=== PATIENT | male | born 1960 | race Caucasian/White ===

== ENCOUNTER 2020-01-14 10:57 | Emergency (ER) | payer MEDICAID ==
[~2020-01-14] VITALS: Ht 175.3 cm; Wt 68.5 kg
[2020-01-14] MEDS ORDERED: PERMETHRIN CRM 5%, 60GM ONE (11:07)
[2020-01-14 11:20] VITALS: BP 134/90
--- NOTE | 2020-01-14 11:31 | NUR ---
DR CORDON BS FOR EXAM
--- NOTE | 2020-01-14 11:50 | NUR ---
SHIRT, PANTS, SOCKS PROVIDED TO PT. DISCUSSED PROBABILITY OF BED BUGS IN THE BOOTS AND HAT PATIENT WANTS TO KEEP; PT REFUSED TO DISCARD THEM. VERBAL PERMISSSION TO DISPOSE OF OTHER CLOTHING LEFT IN PATIENT BAG.
== END 2020-01-14 12:03 | disposition home or self-care (01) ==
LOC: ED 11:44
DX: L02.31 Cutaneous abscess of buttock (principal); L02.416 Cutaneous abscess of left lower limb
CPT/HCPCS: 99283